=== PATIENT | male | born 1965 | race Hispanic/Latino ===

== ENCOUNTER → 2023-05-21 | Outpatient (CLI) | payer OTHER ==
[~2023-05-21] MED LIST: REGADENOSON 0.4 MG/5 ML PF SYG IVP ONE
== END | disposition home or self-care (01) ==
LOC: SHCH 07:48 → EDUNIT# 08:30
PROVIDERS: ATTEND Internal Medicine Cardiovascular Disease
DX: R07.9 Chest pain, unspecified (principal); R06.09 Other forms of dyspnea; I71.40 Abdominal aortic aneurysm, without rupture, unspecified; E03.9 Hypothyroidism, unspecified; Z79.899 Other long term (current) drug therapy
CPT/HCPCS: 78452; 96374; 93017; J2785; A9500 ×2

== ENCOUNTER → 2023-05-23 | Outpatient (CLI) | payer OTHER ==
[~2023-05-23] MED LIST changes: +IOHEXOL 350 MG/ML 100ML INFUS..BTL IV ONE; -REGADENOSON 0.4 MG/5 ML PF SYG IVP ONE
== END | disposition home or self-care (01) ==
LOC: EDUNIT# 05-17 11:00 → RAH 09:24
PROVIDERS: ATTEND Internal Medicine Cardiovascular Disease
DX: K57.30 Diverticulosis of large intestine without perforation or abscess without bleeding (principal); I71.43 Infrarenal abdominal aortic aneurysm, without rupture; R07.9 Chest pain, unspecified; I71.40 Abdominal aortic aneurysm, without rupture, unspecified
CPT/HCPCS: 74174; Q9967

== ENCOUNTER 2023-06-08 05:39 | Day surgery (SDC) | payer OTHER ==
[2023-06-07 11:57] LABS: BASOPHILS # (AUTO) 0.03 K/uL (0.00-0.20); BASOPHILS % (AUTO) 0.5 % (0.0-5.0); EOSINOPHILS # (AUTO) 0.04 K/uL (0.00-0.70); EOSINOPHILS % (AUTO) 0.6 % (0.0-8.0); HEMATOCRIT 40.3 % (42-54); IMMATURE GRANULOCYTE ABSOLUTE 0.03 K/uL (0-1); LYMPHOCYTES # (AUTO) 0.4 K/uL (1.0-4.8); LYMPHOCYTES % (AUTO) 6.9 % (21.0-51.0); MEAN CORPUSCULAR HEMOGLOBIN 32.6 pg (27.0-33.0); MEAN CORPUSCULAR HGB CONC 33.3 g/dL (32.0-36.0); MEAN CORPUSCULAR VOLUME 98.1 fL (79-99); MONOCYTES # (AUTO) 0.5 K/uL (0.1-1.0); MONOCYTES % (AUTO) 7.8 % (3.0-13.0); NEUTROPHILS # (AUTO) 5.2 K/uL (1.8-7.7); NEUTROPHILS % (AUTO) 83.7 % (40.0-77.0); PLATELET COUNT (AUTO) 179 K/uL (130-400); RED BLOOD CELL COUNT(AUTO) 4.11 MIL/uL (4.50-6.20); RED CELL DISTRIBUTION WIDTH 13.5 % (11.0-15.5); WHITE BLOOD COUNT (AUTO) 6.2 K/uL (4.8-10.8)
[2023-06-07 11:58] LABS: APPEARANCE,URINE CLEAR (CLEAR); BILIRUBIN,URINE NEGATIVE (NEGATIVE); COLOR,URINE COLORLESS (YELLOW); GLUCOSE, URINE (UA) NEGATIVE (NEGATIVE); KETONES,URINE NEGATIVE (NEGATIVE); LEUKOCYTE ESTERASE ,URINE NEGATIVE Leu/uL (NEGATIVE); NITRATE,URINE NEGATIVE (NEGATIVE); OCCULT BLOOD,URINE NEGATIVE (NEGATIVE); PH,URINE 5.5 (5.0-8.0); PROTEIN,URINE NEGATIVE (NEGATIVE); UROBILINOGEN,URINE 0.2 mg/dL (0.2-1.0)
[2023-06-07 12:04] LABS: CREATININE 0.6 mg/dL (0.5-1.5); POTASSIUM 4.1 mmol/L (3.5-5.1)
[2023-06-07 12:07] LABS: ADD UA MICROSCOPIC NO
[2023-06-07 12:21] LABS: INR 0.95 (0.85-1.15); PROTHROMBIN TIME 11.1 SEC (9.6-11.6)
[2023-06-07 12:22] LABS: PARTIAL THROMBOPLASTIN TIME 30.9 SEC (26.3-35.5)
[2023-06-07 12:43] VITALS: BP 156/86; PULSE 87; RESP 18
[~2023-06-08] VITALS: Ht 167.6 cm; Wt 48.6 kg
[2023-06-08] VITALS (7 sets, daily range): BP systolic 122–150; BP diastolic 72–88; PULSE 88–104; RESP 12–17
[~2023-06-08 05:39] MED LIST changes: -IOHEXOL 350 MG/ML 100ML INFUS..BTL IV ONE; +LEVO88TA4 PO
[2023-06-08] MEDS ORDERED: 0.9%NACL 1000ML 1,000 ML IV ONE (06:33)
[2023-06-08] MEDS ORDERED: HEPARIN 10,000 UNIT/10ML (1,000 UNIT/ML) VIAL ONE (07:10)
[2023-06-08] MEDS ORDERED: LIDOCAINE HCL 400MG/20ML VIAL ONE (07:10)
[2023-06-08] MEDS ORDERED: NITROGLYCERIN 50MG VIAL ONE (07:10)
[2023-06-08] MEDS ORDERED: NICARDIPINE 25MG INJ IV ONE (07:10)
[2023-06-08] MEDS ORDERED: IOHEXOL 350 MG/ML 100ML INFUS..BTL IV ONE (07:10)
[2023-06-08] MEDS ORDERED: FENTANYL CITRATE PF 50 MCG/1 ML 2ML VIAL ONE (07:24)
[2023-06-08] MEDS ORDERED: MIDAZOLAM HCL 1 MG/ML 2ML VIAL ONE (07:25)
[2023-06-08] MEDS ORDERED: DEXTROSE 50%-WATER 50 ML DISP.SYRIN IV PRN (08:30)
[2023-06-08] MEDS ORDERED: GLUCAGON 1MG KIT 1 MG ML IM PRN (08:30)
== END 2023-06-08 10:25 | disposition home or self-care (01) ==
LOC: DAH 05:39
PROVIDERS: ATTEND Internal Medicine Cardiovascular Disease
DX: R94.39 Abnormal result of other cardiovascular function study (principal); I25.10 Atherosclerotic heart disease of native coronary artery without angina pectoris; I71.40 Abdominal aortic aneurysm, without rupture, unspecified; E03.9 Hypothyroidism, unspecified; Z79.899 Other long term (current) drug therapy; Z72.89 Other problems related to lifestyle; Z85.810 Personal history of malignant neoplasm of tongue; Z98.890 Other specified postprocedural states
CPT/HCPCS: 80048; 83880; 85025; 85610; 85730; 81003; 36415; 71045; 93005; 93458; A4223 ×3; Q9965; C1769 ×2; C1894; J3010; J3490 ×3; J7030; J1644 ×2; J2250; Q9967; A4215; A4222; A6260; A4221; A4663; A4216; A6206; A4606; 99156; 99157

== ENCOUNTER 2023-08-09 11:00 | Inpatient (IN) | payer OTHER ==
[~2023-08-09] VITALS: Ht 167.6 cm; Wt 48.5 kg
[2023-08-09 12:23] VITALS: PULSE 95; RESP 17
[2023-08-09 12:32] LABS: BASOPHILS # (AUTO) 0.04 K/uL (0.00-0.20); BASOPHILS % (AUTO) 0.8 % (0.0-5.0); EOSINOPHILS # (AUTO) 0.02 K/uL (0.00-0.70); EOSINOPHILS % (AUTO) 0.4 % (0.0-8.0); HEMATOCRIT 37.7 % (42-54); IMMATURE GRANULOCYTE ABSOLUTE 0.02 K/uL (0-1); LYMPHOCYTES # (AUTO) 0.4 K/uL (1.0-4.8); MEAN CORPUSCULAR HEMOGLOBIN 32.6 pg (27.0-33.0); MEAN CORPUSCULAR VOLUME 95.9 fL (79-99); MONOCYTES # (AUTO) 0.6 K/uL (0.1-1.0); NEUTROPHILS % (AUTO) 80.4 % (40.0-77.0); PLATELET COUNT (AUTO) 128 K/uL (130-400); RED BLOOD CELL COUNT(AUTO) 3.93 MIL/uL (4.50-6.20); RED CELL DISTRIBUTION WIDTH 13.2 % (11.0-15.5)
[2023-08-09 12:34] LABS: CREATININE 0.6 mg/dL (0.5-1.5); POTASSIUM 3.7 mmol/L (3.5-5.1)
[2023-08-09 12:37] LABS: INR 0.95 (0.85-1.15); PROTHROMBIN TIME 11.1 SEC (9.6-11.6)
[2023-08-09 12:38] LABS: PARTIAL THROMBOPLASTIN TIME 27.8 SEC (26.3-35.5)
[2023-08-09 12:43] LABS: APPEARANCE,URINE CLEAR (CLEAR); BILIRUBIN,URINE NEGATIVE (NEGATIVE); COLOR,URINE YELLOW (YELLOW); GLUCOSE, URINE (UA) 50 mg/dL (NEGATIVE); KETONES,URINE 5 mg/dL (NEGATIVE); LEUKOCYTE ESTERASE ,URINE NEGATIVE Leu/uL (NEGATIVE); NITRATE,URINE NEGATIVE (NEGATIVE); OCCULT BLOOD,URINE SMALL (NEGATIVE); PROTEIN,URINE 20 mg/dL (NEGATIVE); UROBILINOGEN,URINE 0.2 mg/dL (0.2-1.0)
[2023-08-09] MEDS ORDERED: BUSP5TAB3 PO (12:45)
[2023-08-09] MEDS ORDERED: AEC81 PO (12:45)
[2023-08-09 12:46] LABS: ADD UA MICROSCOPIC YES
[2023-08-09 12:48] LABS: MUCUS,URINE RARE LPF (None Seen); SQUAMOUS EPITHELIAL CELL,UR RARE /HPF (0-2); WBC,URINE 0-1 /HPF (0-1)
[2023-08-13] VITALS (51 sets, daily range): BP systolic 100–174; BP diastolic 58–90; PULSE 72–107; RESP 12–96; O2SAT 98
[2023-08-13] MEDS ORDERED: CEFAZOLIN SODIUM 2 GM VIAL ONE (07:32)
[2023-08-13] MEDS ORDERED: IODIXANOL 320 MG/ML 100 ML VIAL ONE (09:58)
[2023-08-13] MEDS ORDERED: HEPARIN 10,000 UNIT/10ML (1,000 UNIT/ML) VIAL ONE ×2 (09:58→11:12)
[2023-08-13] MEDS ORDERED: LIDOCAINE HCL 400MG/20ML VIAL ONE (10:01)
[2023-08-13] MEDS ORDERED: MIDAZOLAM HCL 1 MG/ML 2ML VIAL ONE (10:07)
[2023-08-13] MEDS ORDERED: FENTANYL CITRATE PF 50 MCG/1 ML 2ML VIAL ONE ×4 (10:07→12:51)
[2023-08-13] MEDS ORDERED: PROPOFOL 10 MG/ML 20ML VIAL IV ONE ×2 (10:08→11:24)
[2023-08-13] MEDS ORDERED: ROCURONIUM 10MG/1ML SYR 10 MG/ML ML ONE (10:08)
[2023-08-13] MEDS ORDERED: ESMOLOL HCL 10 MG/ML 10 ML VIAL ONE ×2 (10:30→10:31)
[2023-08-13] MEDS ORDERED: PHENYLEPHRINE HCL 10 MG/ML 1ML VIAL IV ONE (11:00)
[2023-08-13] MEDS ORDERED: NITROGLYCERIN 50MG/D5W 250ML 250 BOT IV SCH (12:30)
[2023-08-13] MEDS ORDERED: NOREPINEPHRIN 4MG/NS 250ML 250 ML IV SCH (12:30)
[2023-08-13] MEDS ORDERED: ONDANSETRON 4MG INJ IV PRN (12:30)
[2023-08-13] MEDS ORDERED: TEMAZEPAM 30 MG CAP PO PRN (12:30)
[2023-08-13] MEDS ORDERED: 0.9%NACL 1000ML 1,000 ML IV SCH (12:30)
[2023-08-13] MEDS ORDERED: NEOSTIGMINE 5MG/5ML SYR IV ONE (12:47)
[2023-08-13] MEDS ORDERED: GLYCOPYRROLATE 0.2 MG/ML 5 ML VIAL ONE (12:47)
[2023-08-13] MEDS ORDERED: HYDRALAZINE 20MG/ML VIAL ONE (13:08)
[2023-08-13] MEDS: BUSPIRONE HCL 5 MG TABLET PO SCH ×2 (14:50→20:27)
[2023-08-13] MEDS: ACETAMINOPHEN 325 MG TAB PO PRN (17:10)
[2023-08-13] MEDS: CEFAZOLIN SODIUM 1 GM VIAL IVPB SCH (19:54)
[2023-08-14] VITALS (53 sets, daily range): BP systolic 125–177; BP diastolic 61–111; PULSE 71–106; RESP 12–23; O2SAT 98–99
[2023-08-14] MEDS: CEFAZOLIN SODIUM 1 GM VIAL IVPB SCH (01:58)
[2023-08-14] MEDS: ACETAMINOPHEN 325 MG TAB PO PRN (05:30)
[2023-08-14 05:36] LABS: HEMATOCRIT 28.8 % (42-54); MEAN CORPUSCULAR HEMOGLOBIN 32.5 pg (27.0-33.0); MEAN CORPUSCULAR HGB CONC 33.3 g/dL (32.0-36.0); MEAN CORPUSCULAR VOLUME 97.6 fL (79-99); RED BLOOD CELL COUNT(AUTO) 2.95 MIL/uL (4.50-6.20); RED CELL DISTRIBUTION WIDTH 13.7 % (11.0-15.5); WHITE BLOOD COUNT (AUTO) 3.9 K/uL (4.8-10.8)
[2023-08-14 06:16] LABS: CREATININE 0.5 mg/dL (0.5-1.5)
[2023-08-14 06:26] LABS: POTASSIUM 2.9 mmol/L (3.5-5.1)
[2023-08-14] MEDS ORDERED: LEVOTHYROXINE 88 MCG TABLET PO SCH (06:30)
[2023-08-14] MEDS ORDERED: KCL 20 MEQ ERTAB PO ONE (07:00)
[2023-08-14] MEDS: BUSPIRONE HCL 5 MG TABLET PO SCH (08:01)
[2023-08-14] MEDS ORDERED: ASPIRIN 81 MG EC TAB PO SCH (09:00)
[2023-08-14] MEDS ORDERED: CLONIDINE HCL 0.1 MG TABLET PO PRN (09:45)
[2023-08-14] MEDS ORDERED: POTASSIUM CHLORIDE 20MEQ/100ML 100 ML IV PRN (10:00)
[2023-08-14] MEDS ORDERED: POTASSIUM CHLORIDE 10% ELIXIR 20 MEQ/15 ML UDCUP PO PRN (10:00)
[2023-08-14] MEDS ORDERED: LOSARTAN 25 MG TABLET PO ONE (10:04)
[2023-08-14] MEDS ORDERED: CLONIDINE HCL 0.1 MG TABLET ONE (10:04)
[2023-08-14] MEDS: KCL 20 MEQ ERTAB PO PRN ×3 (10:06→12:42)
[2023-08-14] MEDS ORDERED: LOSA-417 PO (12:56)
[2023-08-15] MEDS ORDERED: LOSARTAN 25 MG TABLET PO SCH (09:00)
== END 2023-08-14 13:50 | disposition home or self-care (01) | DRG 269 ==
LOC: DAHIP 08-13 05:18 → EDSTATUS 08-13 11:00 → 2CV 08-13 13:45
PROVIDERS: ADMIT Internal Medicine Cardiovascular Disease; ATTEND Internal Medicine Cardiovascular Disease
PROC: 04V03DZ Restriction of Abdominal Aorta with Intraluminal Device, Percutaneous Approach (ICD-10-PCS; principal; 2023-08-13)
PROC: B410YZZ Fluoroscopy of Abdominal Aorta using Other Contrast (ICD-10-PCS; 2023-08-13)
PROC: 047D3ZZ Dilation of Left Common Iliac Artery, Percutaneous Approach (ICD-10-PCS; 2023-08-13)
PROC: 047C3ZZ Dilation of Right Common Iliac Artery, Percutaneous Approach (ICD-10-PCS; 2023-08-13)
PROC: B41CYZZ Fluoroscopy of Pelvic Arteries using Other Contrast (ICD-10-PCS; 2023-08-13)
DX: I71.43 Infrarenal abdominal aortic aneurysm, without rupture (principal); I73.9 Peripheral vascular disease, unspecified; I10 Essential (primary) hypertension; I25.10 Atherosclerotic heart disease of native coronary artery without angina pectoris; E03.9 Hypothyroidism, unspecified; Z79.899 Other long term (current) drug therapy; Z85.810 Personal history of malignant neoplasm of tongue
CPT/HCPCS: 34705; 34713; 36415; 71045; 80048; 80061; 81001; 84132; 85025; 85027; 85347; 85610; 85730; 86850; 86900; 86901; 86923; 93005; A4344; A4606; C1725; C1760; C1769; C1887; C1894; G0378; J0360; J0690; J1644; J2250; J2371; J2405; J2704; J2710; J3010; J3490; Q9967; A4215; A4216; A4221; A4222; A4223; A4663

== ENCOUNTER → 2023-09-12 | Outpatient (CLI) | payer OTHER ==
[~2023-09-12] MED LIST changes: +AEC81 PO; +BUSP5TAB3 PO; +IOHEXOL 350 MG/ML 100ML INFUS..BTL IV ONE; +LOSA-417 PO
== END | disposition home or self-care (01) ==
LOC: RAH 10:55
PROVIDERS: ATTEND Internal Medicine Cardiovascular Disease
DX: I71.40 Abdominal aortic aneurysm, without rupture, unspecified (principal); K57.90 Diverticulosis of intestine, part unspecified, without perforation or abscess without bleeding; M47.815 Spondylosis without myelopathy or radiculopathy, thoracolumbar region; K76.0 Fatty (change of) liver, not elsewhere classified; I70.90 Unspecified atherosclerosis
CPT/HCPCS: 74174; Q9967

== ENCOUNTER → 2024-01-01 | Outpatient (CLI) | payer OTHER ==
[~2024-01-01] MED LIST changes: -IOHEXOL 350 MG/ML 100ML INFUS..BTL IV ONE
== END | disposition home or self-care (01) ==
LOC: SHCH 14:48
PROVIDERS: ATTEND Internal Medicine Cardiovascular Disease
DX: I70.203 Unspecified atherosclerosis of native arteries of extremities, bilateral legs (principal)
CPT/HCPCS: 93925

== ENCOUNTER → 2024-03-14 | Outpatient (CLI) | payer OTHER | END | disposition home or self-care (01) | LOC: SHCH 08:48 | PROVIDERS: ATTEND Internal Medicine Cardiovascular Disease | DX: I08.0 Rheumatic disorders of both mitral and aortic valves (principal); R06.00 Dyspnea, unspecified | CPT/HCPCS: 93306 ==

== ENCOUNTER → 2024-03-26 | Outpatient (CLI) | payer OTHER ==
[~2024-03-26] MED LIST changes: +IOHEXOL 350 MG/ML 100ML INFUS..BTL IV ONE; +IOHEXOL-350 50ML VIAL IV ONE
== END | disposition home or self-care (01) ==
LOC: SHCH 07:52
PROVIDERS: ATTEND Internal Medicine Cardiovascular Disease
DX: I71.43 Infrarenal abdominal aortic aneurysm, without rupture (principal); I70.0 Atherosclerosis of aorta; I73.9 Peripheral vascular disease, unspecified; M47.815 Spondylosis without myelopathy or radiculopathy, thoracolumbar region; Z95.9 Presence of cardiac and vascular implant and graft, unspecified; Z98.890 Other specified postprocedural states
CPT/HCPCS: 75635; Q9967 ×2

== ENCOUNTER → 2025-01-09 | Outpatient (CLI) | payer OTHER ==
[~2025-01-09] MED LIST changes: -IOHEXOL 350 MG/ML 100ML INFUS..BTL IV ONE; -IOHEXOL-350 50ML VIAL IV ONE
[2025-01-09 11:12] LABS: CREATININE 0.5 mg/dL (0.5-1.3); POTASSIUM 4.2 mmol/L (3.5-5.1)
== END | disposition home or self-care (01) ==
LOC: LAB 10:32
PROVIDERS: ATTEND Internal Medicine Cardiovascular Disease
DX: I65.23 Occlusion and stenosis of bilateral carotid arteries (principal)
CPT/HCPCS: 36415; 80048

== ENCOUNTER → 2025-01-12 | Outpatient (CLI) | payer OTHER ==
[~2025-01-12] MED LIST changes: +IOHEXOL-350 75 ML VIAL IV ONE
--- NOTE | 2025-01-12 10:59 | HMCIMG ---
CT ANGIO NECK HISTORY: Occlusion and stenosis of bilateral carotid arteries COMPARISON: None TECHNIQUE: CT angiography of the neck was performed. The study was performed using angiographic technique with maximum intensity projection reconstruction images. FINDINGS: There are degenerative changes of the cervical spine. Parapharyngeal fat planes are preserved bilaterally. The airway is patent. Normal enhancement of the thyroid gland is noted. Visualized portion of the lung apices are unremarkable. The common, internal and external carotid arteries are visualized. There is atherosclerosis. There is right internal carotid artery stent appears to be patent. Less than 40% stenosis is seen of the left internal carotid artery with calcified plaques. No hemodynamically significant lesion is seen of either extracranial carotid artery system otherwise. Both vertebral arteries are seen with antegrade flow. IMPRESSION: CTA Neck 1. Atherosclerotic disease. There is atherosclerosis. There is right internal carotid artery stent appears to be patent. Less than 40% stenosis is seen of the left internal carotid artery with calcified plaques. CT was performed with one or more following dose reduction techniques: automated exposure control, adjustment of the mA and kv according to patient's size, or use of a iterative reconstruction technique.
== END | disposition home or self-care (01) ==
LOC: RAH 08:31
PROVIDERS: ATTEND Internal Medicine Cardiovascular Disease
DX: I65.22 Occlusion and stenosis of left carotid artery (principal); I65.23 Occlusion and stenosis of bilateral carotid arteries; I70.90 Unspecified atherosclerosis; M47.812 Spondylosis without myelopathy or radiculopathy, cervical region
CPT/HCPCS: 70498; Q9967